=== PATIENT | female | born 1955 | race Caucasian/White ===

== ENCOUNTER 2020-02-03 19:57 | Emergency (ER) | payer MEDICAID ==
[~2020-02-03] VITALS: Ht 162.6 cm; Wt 68.0 kg
[2020-02-03 20:06] VITALS: BP 127/78
--- NOTE | 2020-02-03 20:29 | NUR ---
PT WHEELED TO ROOM BOYFRIEND VERY INSISTANT ON BEING WITH PT.
--- NOTE | 2020-02-03 21:15 | NUR ---
ERP AT BEDSIDE
[2020-02-03] MEDS ORDERED: CEPHALEXIN 500 MG CAPSULE PO ONE (22:00)
[2020-02-03] MEDS ORDERED: SULFAMETH./TRIMETHOPRIM DS 800MG/160MG TABLET PO ONE (22:00)
[2020-02-03] MEDS ORDERED: CEPHALEXIN 500 MG CAPSULE ONE (22:04)
[2020-02-03] MEDS ORDERED: SULFAMETH./TRIMETHOPRIM DS 800MG/160MG TABLET ONE (22:04)
[2020-02-03] MEDS ORDERED: IBUPROFEN 800 MG TABLET ONE (22:29)
[2020-02-03] MEDS ORDERED: IBUPROFEN 800 MG TABLET PO ONE (22:30)
== END 2020-02-03 23:02 | disposition home or self-care (01) ==
LOC: ED 21:00
DX: S06.0X0A Concussion without loss of consciousness, initial encounter (principal); L03.114 Cellulitis of left upper limb; L03.113 Cellulitis of right upper limb; L03.116 Cellulitis of left lower limb; L03.115 Cellulitis of right lower limb; G89.29 Other chronic pain; Z90.49 Acquired absence of other specified parts of digestive tract; Z90.710 Acquired absence of both cervix and uterus; W01.198A Fall on same level from slipping, tripping and stumbling with subsequent striking against other object, initial encounter; Y93.89 Activity, other specified; Y92.410 Unspecified street and highway as the place of occurrence of the external cause; Y99.8 Other external cause status
CPT/HCPCS: 99283